=== PATIENT | female | born 1940 | race Caucasian/White ===

== ENCOUNTER 2017-12-09 08:31 | Emergency (ER) | payer OTHER ==
[~2017-12-09] VITALS: Ht 167.6 cm; Wt 121.6 kg
[~2017-12-09 08:31] MED LIST: AMIT25 PO; GABA100 PO; GABA800 PO; HYDACE5 PO; LEVO-T88 MCG PO; LEVOTHYROXINE PO; METF500 PO; NAPR500 PO; Prinivil10 MG PO; SPIHYD PO; TRAM50 PO
[2017-12-09 09:25] LABS: BASOPHILS ABSOLUTE AUTO 0.02 K/mm3 (0.00-0.23); BASOPHILS PERCENT AUTO 0 % (0-2); EOSINOPHILS ABSOLUTE AUTO 0.14 K/mm3 (0.00-0.68); EOSINOPHILS PERCENT AUTO 2 % (0-6); Hematocrit 39.4 % (33.0-51.0); Hemoglobin 13.5 g/dL (11.5-16.0); IMMATURE GRAN ABSOLUTE AUTO 0.02 K/mm3 (0.00-0.10); IMMATURE GRAN PERCENT AUTO 0 % (0-1); LYMPHOCYTES ABSOLUTE AUTO 0.99 K/mm3 (0.84-5.20); LYMPHOCYTES PERCENT AUTO 12 % (21-46); MONOCYTES ABSOLUTE AUTO 0.49 K/mm3 (0.16-1.47); MONOCYTES PERCENT AUTO 6 % (4-13); Mean Corpuscular HGB 30.4 pg (26.0-34.0); Mean Corpuscular HGB Conc 34.3 g/dL (31.5-36.5); Mean Corpuscular Volume 89 fL (80-100); Mean Platelet Volume 11.5 fL (9.1-12.4); NEUTROPHILS ABSOLUTE AUTO 6.97 K/mm3 (1.96-9.15); NEUTROPHILS PERCENT AUTO 81 % (41-73); Platelet Count 206 K/mm3 (150-400); RDW Coefficient Variation 12.6 % (11.7-14.2); Red Blood Cell Count 4.44 M/mm3 (3.80-5.20); White Blood Cell Count 8.63 K/mm3 (4.00-11.30)
[2017-12-09 09:41] LABS: Albumin, Blood 3.7 g/dL (3.4-5.0); Albumin/Globulin Ratio 0.9 (0.8-1.8); Bilirubin, Total 0.6 mg/dL (0.1-1.0); Bun/Creatinine Ratio 30.5 (12.0-20.0); Calcium, Blood 9.3 mg/dL (8.5-10.1); Creatinine, Blood 1.05 mg/dL (0.40-1.00); Globulin, Blood 4.1 g/dL (2.2-4.0); Potassium, Blood 3.9 mmol/L (3.5-5.5); Total Protein, Blood 7.8 g/dL (6.4-8.2)
[2017-12-09] MEDS ORDERED: ANASTROZOLE5 GM PO (10:02)
== END 2017-12-09 12:18 | disposition home or self-care (01) ==
LOC: ER 08:31
PROVIDERS: Emergency Medicine
DX: S39.91XA Unspecified injury of abdomen, initial encounter (principal); M54.5 Low back pain; G89.29 Other chronic pain; E66.01 Morbid (severe) obesity due to excess calories; E11.9 Type 2 diabetes mellitus without complications; Z91.09 Other allergy status, other than to drugs and biological substances; Z79.899 Other long term (current) drug therapy; Z79.84 Long term (current) use of oral hypoglycemic drugs; Z98.1 Arthrodesis status; Z68.41 Body mass index [BMI] 40.0-44.9, adult; W19.XXXA Unspecified fall, initial encounter
CPT/HCPCS: 36415; 74176; 80053; 85025; 96374; 96375; 99284; J2405; J3010

== ENCOUNTER 2019-05-07 12:50 | Day surgery (SDC) | payer OTHER ==
[~2019-05-07] VITALS: Ht 172.7 cm; Wt 119.5 kg
[~2019-05-07 12:50] MED LIST changes: +ANASTROZOLE5 GM PO
== END 2019-05-07 15:45 | disposition home or self-care (01) ==
LOC: ORSCSDS 12:50 → ORD 05-08 13:30
PROVIDERS: Orthopaedic Surgery
PROC: 3E0R33Z Introduction of Anti-inflammatory into Spinal Canal, Percutaneous Approach (ICD-10-PCS; principal; 2019-05-07 14:15)
DX: M54.16 Radiculopathy, lumbar region (principal); M48.062 Spinal stenosis, lumbar region with neurogenic claudication; E10.8 Type 1 diabetes mellitus with unspecified complications; I10 Essential (primary) hypertension; E03.9 Hypothyroidism, unspecified; M79.7 Fibromyalgia; Z79.84 Long term (current) use of oral hypoglycemic drugs; Z79.899 Other long term (current) drug therapy
CPT/HCPCS: J1040

== ENCOUNTER 2020-05-18 08:38 | Day surgery (SDC) | payer OTHER ==
[~2020-05-18] VITALS: Ht 170.2 cm; Wt 125.1 kg
[~2020-05-18 08:38] MED LIST changes: +ANAS1 PO; -ANASTROZOLE5 GM PO; +DULO30 PO; +SPIRONOLACTONE1 EACH PO
== END 2020-05-18 10:47 | disposition home or self-care (01) ==
LOC: ORSCSDS 08:38
PROVIDERS: Ophthalmology
PROC: 08RJ3JZ Replacement of Right Lens with Synthetic Substitute, Percutaneous Approach (ICD-10-PCS; principal; 2020-05-18 10:00)
DX: H25.11 Age-related nuclear cataract, right eye (principal); I10 Essential (primary) hypertension; E66.01 Morbid (severe) obesity due to excess calories; Z68.41 Body mass index [BMI] 40.0-44.9, adult; F32.9 Major depressive disorder, single episode, unspecified; Z79.899 Other long term (current) drug therapy; Z79.84 Long term (current) use of oral hypoglycemic drugs
CPT/HCPCS: 82947; J2001; J2250; J3010; J3301; J7040; V2632

== ENCOUNTER 2020-06-22 07:21 | Day surgery (SDC) | payer OTHER ==
[~2020-06-22] VITALS: Ht 167.6 cm; Wt 125.3 kg
--- NOTE | 2020-06-22 07:57 | NUR ---
06/22/20 [id number] Leigh Ann Irizarry CALL LIGHT WITHIN REACH
== END 2020-06-22 09:43 | disposition home or self-care (01) ==
LOC: ORSCSDS 07:21
PROVIDERS: Ophthalmology
PROC: 08RK3JZ Replacement of Left Lens with Synthetic Substitute, Percutaneous Approach (ICD-10-PCS; principal; 2020-06-22 08:30)
DX: H25.12 Age-related nuclear cataract, left eye (principal); I10 Essential (primary) hypertension; E11.9 Type 2 diabetes mellitus without complications; E66.01 Morbid (severe) obesity due to excess calories; E03.9 Hypothyroidism, unspecified; Z79.84 Long term (current) use of oral hypoglycemic drugs; Z79.899 Other long term (current) drug therapy
CPT/HCPCS: 82947; J2001; J2250; J3010; J3301; J7040; V2632

== ENCOUNTER → 2023-08-28 | Outpatient (CLI) | payer OTHER | END | disposition home or self-care (01) | LOC: LAB SHORT 17:12 → LAB 17:12 | DX: N39.0 Urinary tract infection, site not specified (principal) | CPT/HCPCS: 87077; 87086; 87186 ==

== ENCOUNTER → 2025-09-28 | Outpatient (CLI) | payer MEDICARE | LOC: LAB 11:36 → LAB SHORT 11:36 | DX: R30.0 Dysuria (principal) | CPT/HCPCS: 87077; 87086; 87186 ==